=== PATIENT | male | born 1950 | race Caucasian/White ===

== ENCOUNTER 2017-03-10 19:44 | Emergency (ER) | payer OTHER ==
[~2017-03-10] VITALS: Ht 167.6 cm; Wt 102.1 kg
[~2017-03-10 19:44] MED LIST: ASPIRIN EC325 MG PO; BACITRACIN1 PKT TOP; CEPHALEXIN500 MG PO; COUMADIN2.5 MG PO; DULCOLAX STOOL100 MG PO; ECEE PLUS TABL1 EACH PO; FLEXERIL10 MG PO; GLYBURIDE MICR1.5 MG PO; GLYBURIDE2.5 MG PO; KEFLEX250 MG PO; LACTULOSE10 GM/152 PO; LANTUS100 UNITS/ SUB-Q; LASIX40 MG PO; LEVAQUIN750 MG PO; LISINOPRIL10 MG PO; METFORMIN HCL1000 MG PO; METFORMIN HCL850 MG PO; NORCO 5-325 TA1 EACH PO; NOVOLOG FL100 UNIT/1 SUB-Q; OMEPRAZOLE20 MG PO; OXECTA5 MG PO; SIMVASTATIN20 MG PO; SPIRONOLACTONE50 MG PO; ZOLPIDEM TARTRA10 MG PO
[2017-03-10] MEDS ORDERED: VISTARIL25 MG PO (20:02)
== END 2017-03-10 22:00 | disposition home or self-care (01) ==
LOC: ED 19:44
DX: T38.3X1A Poisoning by insulin and oral hypoglycemic [antidiabetic] drugs, accidental (unintentional), initial encounter (principal); E11.9 Type 2 diabetes mellitus without complications; K21.9 Gastro-esophageal reflux disease without esophagitis; E78.00 Pure hypercholesterolemia, unspecified; K74.60 Unspecified cirrhosis of liver; I10 Essential (primary) hypertension; Z85.46 Personal history of malignant neoplasm of prostate; Z86.19 Personal history of other infectious and parasitic diseases; Z87.891 Personal history of nicotine dependence; Z90.49 Acquired absence of other specified parts of digestive tract; Z88.8 Allergy status to other drugs, medicaments and biological substances; Z79.01 Long term (current) use of anticoagulants; Z79.899 Other long term (current) drug therapy; Z79.4 Long term (current) use of insulin
CPT/HCPCS: 80053; 82140; 85025; 85610; 99283; J7042

== ENCOUNTER 2017-03-17 19:08 | Emergency (ER) | payer OTHER ==
[~2017-03-17] VITALS: Ht 167.6 cm; Wt 102.1 kg
[~2017-03-17 19:08] MED LIST changes: +VISTARIL25 MG PO
[2017-03-17] MEDS ORDERED: ZITHROMAX250 MG PO (22:11)
[2017-04-17] MEDS ORDERED: TRAZODONE HCL100 MG PO (11:02)
[2017-04-17] MEDS ORDERED: FLOMAX0.4 MG PO (11:02)
[2017-04-17] MEDS ORDERED: ONGLYZA5 MG PO (11:03)
== END 2017-03-17 22:32 | disposition home or self-care (01) ==
LOC: ED 19:08
DX: J20.9 Acute bronchitis, unspecified (principal); E11.9 Type 2 diabetes mellitus without complications; K21.9 Gastro-esophageal reflux disease without esophagitis; E78.00 Pure hypercholesterolemia, unspecified; Z87.891 Personal history of nicotine dependence; Z90.49 Acquired absence of other specified parts of digestive tract; Z88.1 Allergy status to other antibiotic agents; Z79.4 Long term (current) use of insulin; Z79.01 Long term (current) use of anticoagulants; Z79.899 Other long term (current) drug therapy; Z86.19 Personal history of other infectious and parasitic diseases; Z85.46 Personal history of malignant neoplasm of prostate
CPT/HCPCS: 71046; 80053; 81001; 82140; 83605; 85025; 87040; 87502; 96360; 99284; J7030

== ENCOUNTER 2017-04-23 06:50 | Day surgery (SDC) | payer OTHER ==
[~2017-04-23] VITALS: Ht 167.6 cm; Wt 101.2 kg
[~2017-04-23 06:50] MED LIST changes: +FLOMAX0.4 MG PO; +ONGLYZA5 MG PO; +TRAZODONE HCL100 MG PO; +ZITHROMAX250 MG PO
--- NOTE | 2017-04-23 09:12 | NUR ---
[facility]17 [facility]12 [facility] AR[facility]IV[facility] IN PACU SLEEPY. REPORT FROM ANESTHESIA. BLOOD SUGAR 135. 0900 PT AWAKE WITH NO C/O'S.
--- NOTE | 2017-04-27 08:11 | OR ---
[facility] [address], [place] [address] Signed DATE OF OPERATION: 04/23/2017 SURGEON: Morgan Morton MD PREOPERATIVE DIAGNOSES: 1. Cirrhosis with intermittent encephalopathy. 2. Portal hypertension and portal gastropathy. 3. Grade 1 esophageal varices. 4. Hiatal hernia. 5. History of gastric ulcer. 6. Chews 6 cans of snuff each month. 7. History of hepatitis C virus. 8. Quit drinking alcohol in March 2016. POSTOPERATIVE DIAGNOSES: 1. Portal gastropathy. 2. Small to moderate-sized type 1 hiatal hernia. 3. Grade 1 esophageal varices. PROCEDURE: EGD without biopsy. ESTIMATED BLOOD LOSS: None. INDICATIONS: Nilesh is a 66-year-old gentleman, who unfortunately has a history of hepatitis C associated with alcohol, resulting in cirrhosis with intermittent encephalopathy. He also has portal hypertension with grade 1 esophageal varices and portal gastropathy. He is known to have a hiatal hernia and a previous gastric ulcer. He still chews snuff about 6 cans in a month. He had been out to [facility] to see the Hepatology Department. They recommended a followup endoscopy to evaluate the varices. I explained to Nilesh, he also has splenomegaly with thrombocytopenia, but with thrombocytopenia with a platelet count around 48,000. Consequently, he does represent significant risk directly for surgeries. Also, we do not have a mail officer at our institution and I explained we would not be banding any varices. It was simply be diagnostic. In addition, he has a history of paroxysmal atrial fibrillation with AV block and had a pacemaker placed in 2014. Consequently, he has been on Coumadin. I explained to Nilesh, we would not be doing any biopsies, they would not add anything what we already know. I reviewed with him upper endoscopy along with its risks and benefits Electronically Signed By: MORGAN MORTON MD 04/27/17 0811 PATIENT NAME: NILESH CASSIDY OPERATIVE REPORT DATE OF : 50 PHYSICIAN: MORGAN MROTON MD REPORT #: [id number] REPORT IS CONFIDENTIAL AND NOT TO BE RELEASED WITHOUT AUTHORIZATION [facility] [address], [place] [address] Signed including, but not limited to, gas bloating, crampy abdominal pain, bleeding, perforation, requiring surgery, and missed diagnosis. He also understands the need for IV conscious sedation given his significant past medical history. We asked an anesthesia provider to help us with increased monitoring sedation with propofol. He had expressed understanding and wished to proceed. PROCEDURE NOTE: Nilesh was taken into our endoscopy suite and placed in the supine semi-recumbent position. The posterior oropharynx was anesthetized with Hurricaine spray. A bite block was utilized for the case. He was given IV sedation with propofol per nurse parachute mender. The adult gastroscope was introduced and advanced easily down the esophagus and out into the third portion of the duodenum. The duodenum was unremarkable. The pyloric channel had just a little bit of irritation. The stomach shows classic portal gastropathy with punctate areas of hemorrhage throughout. No ulcerations. Upon retroflexion of the scope, it was difficult to see, but he does have a small to moderate-sized type 1 hiatal hernia. We withdrew the scope up through the area of the GE junction, which was compliant without stricture and once again, we could see the hiatal hernia. We could easily see his grade 1 esophageal varices in his distal esophagus. The middle and upper esophagus were unremarkable. After this, the gas was suctioned out and the gastroscope removed. Nilesh tolerated the procedure quite well. RECOMMENDATIONS: I will give Nilesh a copy of his pictures. He is welcome to follow up in my office as needed. 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 If he needs to have banding performed, he would have to go to another institution since we do not have a mail officer. MD MARIANELA Hooks/MODL /[id number] cc: [place], [place] Morgan Morton MD Electronically Signed By: MORGAN MORTON MD 04/27/17810 PATIENT NAME: NILESH CASSIDY OPERATIVE REPORT DATE OF : 50 PHYSICIAN: MORGAN MORTON MD REPORT #: [id number] REPORT IS CONFIDENTIAL AND NOT TO BE RELEASED WITHOUT AUTHORIZATION [facility] [address] [place] [id number] Signed MD Delano Alas MD Electronically Signed By: MORGAN MORTON MD 04/27/17810 PATIENT NAME: NILESH CASSIDY OPERATIVE REPORT DATE OF : 50 PHYSICIAN: MORGAN MORTON MD REPORT #: [id number] REPORT IS CONFIDENTIAL AND NOT TO BE RELEASED WITHOUT AUTHORIZATION
== END 2017-04-23 09:30 | disposition home or self-care (01) ==
LOC: DS 06:50 → OPS 06:50 → DS 08:00
PROVIDERS: Colon & Rectal Surgery
PROC: 0DJ08ZZ Inspection of Upper Intestinal Tract, Via Natural or Artificial Opening Endoscopic (ICD-10-PCS; principal; 2017-04-23 08:00)
DX: K76.6 Portal hypertension (principal); K31.89 Other diseases of stomach and duodenum; K44.9 Diaphragmatic hernia without obstruction or gangrene; I85.10 Secondary esophageal varices without bleeding; G47.30 Sleep apnea, unspecified; I48.0 Paroxysmal atrial fibrillation; E11.42 Type 2 diabetes mellitus with diabetic polyneuropathy; I10 Essential (primary) hypertension; K21.9 Gastro-esophageal reflux disease without esophagitis; I73.9 Peripheral vascular disease, unspecified; N40.0 Benign prostatic hyperplasia without lower urinary tract symptoms; E78.5 Hyperlipidemia, unspecified; M19.90 Unspecified osteoarthritis, unspecified site; Z98.890 Other specified postprocedural states; Z90.49 Acquired absence of other specified parts of digestive tract; Z79.01 Long term (current) use of anticoagulants; Z79.899 Other long term (current) drug therapy; Z96.652 Presence of left artificial knee joint; Z95.0 Presence of cardiac pacemaker; Z87.891 Personal history of nicotine dependence; Z88.8 Allergy status to other drugs, medicaments and biological substances
CPT/HCPCS: J2250; J2704; J3010; J7120

== ENCOUNTER 2019-04-12 03:17 | Emergency (ER) | payer OTHER ==
[~2019-04-12] VITALS: Ht 167.6 cm; Wt 101.2 kg
[~2019-04-12 03:17] MED LIST changes: +ASPIR 8181 MG PO; +CIPRO500 MG PO; +EPCLUSA 400 MG1 EACH PO; +FERROUS FUMARA324 MG PO; +FLAGYL500 MG PO; +GLUCOPHAGE850 MG PO; +GLYBURIDE5 MG PO; +LISINOPRIL30 MG PO; +NITROGLYCERIN0.4 MG SL
[2019-04-12] MEDS ORDERED: GABAPENTIN300 MG PO (03:55)
[2019-04-12] MEDS ORDERED: ALOGLIPTIN25 MG PO (03:55)
[2019-04-12] MEDS ORDERED: GLUCOPHAGE500 MG PO (03:56)
[2019-04-12] MEDS ORDERED: ELIQUIS5 MG PO (03:56)
--- NOTE | 2019-04-13 10:56 | EKG ---
[facility] [address] [place] [address] Signed Atrial-sensed ventricular-paced rhythm with prolonged AV conduction Abnormal ECG When compared with ECG of 04-MAR-2018 18:00, Vent. rate has decreased BY 6 BPM Confirmed by RDONEY SHELTON MD ([id number]) on 04/13/2019 10:56:38 AM Electronically Signed By: RODNEY SHELTON MD 04/13/19 1056 PATIENT NAME: TIN CASSIDY Electrocardiogram DATE OF : 50 PHYSICIAN: RODNEY SHELTON MD REPORT #: [id number] REPORT IS CONFIDENTIAL AND NOT TO BE RELEASED WITHOUT AUTHORIZATION
== END 2019-04-12 07:00 | disposition home or self-care (01) ==
LOC: ED 03:17
DX: F10.129 Alcohol abuse with intoxication, unspecified (principal); E11.9 Type 2 diabetes mellitus without complications; K21.9 Gastro-esophageal reflux disease without esophagitis; I10 Essential (primary) hypertension; Z88.1 Allergy status to other antibiotic agents; Z79.899 Other long term (current) drug therapy; Z79.84 Long term (current) use of oral hypoglycemic drugs
CPT/HCPCS: 51701; 71045; 80053; 81001; 82140; 84484; 85025; 85610; 93005; 93010; 99284-25; G0480; J7030

== ENCOUNTER 2021-10-25 16:37 | Emergency (ER) | payer OTHER ==
[~2021-10-25] VITALS: Ht 167.6 cm; Wt 97.1 kg
[~2021-10-25 16:37] MED LIST changes: +ALOGLIPTIN25 MG PO; +ELIQUIS5 MG PO; +GABAPENTIN300 MG PO; +GLUCOPHAGE500 MG PO
== END 2021-10-25 22:31 | disposition home or self-care (01) ==
LOC: ED 16:37
DX: R31.9 Hematuria, unspecified (principal); D69.6 Thrombocytopenia, unspecified; E11.9 Type 2 diabetes mellitus without complications; K21.9 Gastro-esophageal reflux disease without esophagitis; E78.00 Pure hypercholesterolemia, unspecified; I10 Essential (primary) hypertension; I48.91 Unspecified atrial fibrillation; Z88.1 Allergy status to other antibiotic agents; Z79.899 Other long term (current) drug therapy; Z79.4 Long term (current) use of insulin; Z79.84 Long term (current) use of oral hypoglycemic drugs
CPT/HCPCS: 36415; 74177; 80053; 81001; 85025; 85060; 85610; 85730; 99284-25; Q9967

== ENCOUNTER 2022-07-24 13:39 | Emergency (ER) | payer OTHER ==
[~2022-07-24] VITALS: Ht 167.6 cm; Wt 97.1 kg
[2022-07-24] MEDS ORDERED: JARDIANCE10 MG PO (13:54)
[2022-07-24] MEDS ORDERED: ROSUVASTATIN CA20 MG PO (13:54)
[2022-07-24] MEDS ORDERED: LANTUS SOL100 UNIT/1 SUB-Q (15:13)
[2022-07-24 15:52] VITALS: BP 115/77
--- NOTE | 2022-07-24 19:10 | EKG ---
[facility] [address] [address] Signed Ventricular-paced rhythm Abnormal ECG When compared with ECG of 12-APR-2019 03:36, Vent. rate has decreased BY 11 BPM Confirmed by EMILY FOSTER MD ([id number]) on 07/24/2022 7:10:24 PM Electronically Signed By: EMILY FOSTER MD 07/24/221909 PATIENT NAME: TIN CASSIDY Electrocardiogram DATE OF : 50 PHYSICIAN: EMILY FOSTER MD REPORT #: [id number] REPORT IS CONFIDENTIAL AND NOT TO BE RELEASED WITHOUT AUTHORIZATION
== END 2022-07-24 15:53 | disposition home or self-care (01) ==
LOC: ED 13:39
DX: E11.65 Type 2 diabetes mellitus with hyperglycemia (principal); K21.9 Gastro-esophageal reflux disease without esophagitis; E78.00 Pure hypercholesterolemia, unspecified; I10 Essential (primary) hypertension; I48.91 Unspecified atrial fibrillation; Z88.1 Allergy status to other antibiotic agents; Z79.899 Other long term (current) drug therapy; Z79.4 Long term (current) use of insulin; Z79.84 Long term (current) use of oral hypoglycemic drugs
CPT/HCPCS: 36415; 70450; 71045; 80053; 81003; 82140; 83735; 85025; 85060; 93005; 93010; 99284-25

== ENCOUNTER 2023-04-04 10:52 | Emergency (ER) | payer OTHER ==
[~2023-04-04] VITALS: Ht 170.2 cm; Wt 104.8 kg
[~2023-04-04 10:52] MED LIST changes: +JARDIANCE10 MG PO; +LANTUS SOL100 UNIT/1 SUB-Q; +ROSUVASTATIN CA20 MG PO
[2023-04-04 11:45] LABS: ALBUMIN 2.5 g/dL (3.4-5.0); ALBUMIN/GLOBULIN RATIO 0.58 (1.1-2.4); ALCOHOL, MEDICAL <3 ng/dL (<3); ALKALINE PHOSPHATASE 119 U/L (46-116); ALT (SGPT) 34 U/L (14-59); ANION GAP 17.4 (7-21); AST (SGOT) 51 U/L (15-37); BILIRUBIN, TOTAL 3.2 ng/dL (0.2-1.0); BUN/CREATININE RATIO 13.81 (6.0-28.6); CALCIUM 8.8 mg/dL (8.5-10.1); CARBON DIOXIDE 23 mmol/L (21-32); CHLORIDE 97 mmol/L (98-107); CREATININE, SERUM 1.52 mg/dL (0.70-1.30); GLOMERULAR FILTRATION RATE,EST 48 mL/min (>60); POTASSIUM 5.4 mmol/L (3.5-5.1); PROTEIN, TOTAL 6.8 g/dL (6.4-8.2); UREA NITROGEN 21 mg/dL (7-18)
[2023-04-04 12:20] LABS: BASOPHILS 0.1 % (0-2); EOSINOPHILS 0.2 % (0-6); HEMATOCRIT 31.6 % (35.0-50.0); HEMOGLOBIN 12.3 g/dL (12.0-18.0); LYMPHOCYTES 1.9 % (24-44); MCH 45.7 (27-36); MONOCYTES 1.2 % (0-12); NEUTROPHILS 96.6 % (39-80); RDW 14.7 (10.5-15.0)
[2023-04-04 12:39] LABS: BILIRUBIN, URINE POSITIVE (negative); BLOOD/HGB, URINE LARGE (Negative); KETONE, URINE NEGATIVE (Negative); LEUK ESTERASE, URINE SMALL (negative); NITRITE, URINE NEGATIVE (negative)
[2023-04-04 12:41] LABS: BACTERIA, URINE RARE /hpf (negative); CASTS, URINE NONE SEEN \\lpf; COLLECTION TYPE, URINE CLEAN CATCH; CRYSTALS, URINE NONE SEEN (0-1+); EPITHELIAL CELLS, URINE 0 /lpf (0-1+); RED BLOOD CELLS, URINE >50 /hpf (0-5); REFLEX CULTURE, URINE Yes (No)
[2023-04-04 12:55] LABS: AMPHETAMINES, URINE NEGATIVE (NEGATIVE); BARBITURATES, URINE NEGATIVE (NEGATIVE); BENZODIAZEPINE, URINE NEGATIVE (NEGATIVE); BUPRENORPHINE, URINE NEGATIVE (NEGATIVE); CANNABINOID, URINE NEGATIVE (NEGATIVE); COCAINE, URINE NEGATIVE (NEGATIVE); ECSTASY, URINE POSITIVE (NEGATIVE); FENTANYL, URINE POSITIVE (NEGATIVE); METHADONE, URINE NEGATIVE (NEGATIVE); OPIATES, URINE NEGATIVE (NEGATIVE); OXYCODONE, URINE NEGATIVE (NEGATIVE); PHENCYCLIDINE, URINE NEGATIVE (NEGATIVE)
[2023-04-04 13:01] LABS: MCHC 35.9 g/dl (30-36); PLATELET COUNT 50 K/uL (140-440)
[2023-04-04 14:32] VITALS: BP 122/63
[2023-04-06 00:49] LABS: FOLATE,SERUM 9.3 ng/mL (>=5.9)
== END 2023-04-04 14:32 | disposition home or self-care (01) ==
LOC: ED 10:52
PROVIDERS: Emergency Medicine
DX: R53.1 Weakness (principal); E11.9 Type 2 diabetes mellitus without complications; I10 Essential (primary) hypertension; K21.9 Gastro-esophageal reflux disease without esophagitis; I48.91 Unspecified atrial fibrillation; Z95.0 Presence of cardiac pacemaker; Z79.4 Long term (current) use of insulin; Z79.899 Other long term (current) drug therapy; Z88.8 Allergy status to other drugs, medicaments and biological substances; Z79.84 Long term (current) use of oral hypoglycemic drugs; Z79.01 Long term (current) use of anticoagulants; Z91.81 History of falling
CPT/HCPCS: 36415; 70450; 73030; 80053; 80307; 81001; 82607; 82746; 85025; 85060; 87088; 99285-25; G0480

== ENCOUNTER 2023-05-20 06:41 | Emergency (ER) | payer OTHER ==
[~2023-05-20 06:41] MED LIST changes: -TRAZODONE HCL100 MG PO; +TRAZODONE HCL150 MG PO
[2023-05-20 07:11] LABS: ALKALINE PHOSPHATASE 170 U/L (46-116); ALT (SGPT) 42 U/L (14-59); ANION GAP 16.8 (7-21); AST (SGOT) 41 U/L (15-37); BILIRUBIN, TOTAL 2.5 ng/dL (0.2-1.0); CALCIUM 8.9 mg/dL (8.5-10.1); CARBON DIOXIDE 24 mmol/L (21-32); CHLORIDE 95 mmol/L (98-107); CREATININE, SERUM 2.34 mg/dL (0.70-1.30); GLOMERULAR FILTRATION RATE,EST 29 mL/min (>60); POTASSIUM 4.8 mmol/L (3.5-5.1); PROTEIN, TOTAL 6.5 g/dL (6.4-8.2); UREA NITROGEN 44 mg/dL (7-18)
[2023-05-20 07:26] LABS: ALCOHOL, MEDICAL <3 ng/dL (<3)
[2023-05-20 07:40] LABS: ABO B; ANTIBODY SCREEN NEGATIVE; RH POSITIVE
[2023-05-20 07:44] LABS: BASOPHILS 0.2 % (0-2); EOSINOPHILS 2.1 % (0-6); HEMATOCRIT 29.3 % (35.0-50.0); LYMPHOCYTES 6.2 % (24-44); MCH 46.9 (27-36); MCHC 39.6 g/dl (30-36); MCV 118.3 fl (81-99); MONOCYTES 14.4 % (0-12); NEUTROPHILS 77.1 % (39-80); PLATELET COUNT 91 K/uL (140-440); RBC 2.48 M/ul (4.3-5.7); RDW 15.6 (10.5-15.0)
[2023-05-20 07:46] LABS: HEMOGLOBIN 11.6 g/dL (12.0-18.0)
[2023-05-20] MEDS ORDERED: ondansetron HCL 4 MG/2 ML VIAL IV ONE (08:00)
[2023-05-20] MEDS ORDERED: SODIUM CHLORIDE 0.9% 500 ML IV PRN (08:00)
[2023-05-20] MEDS ORDERED: SPIRONOLACTONE100 MG PO (08:01)
[2023-05-20] MEDS ORDERED: TORSEMIDE20 MG PO (08:01)
[2023-05-20] MEDS ORDERED: LANTUS SOL100 UNIT/1 SUB-Q (08:06)
[2023-05-20] MEDS ORDERED: OZEMPIC0.25 MG/02 SUB-Q (08:07)
[2023-05-20] MEDS ORDERED: METFORMIN HCL500 MG PO (08:10)
[2023-05-20 09:31] LABS: BILIRUBIN, URINE NEGATIVE (negative); BLOOD/HGB, URINE LARGE (Negative); KETONE, URINE NEGATIVE (Negative); LEUK ESTERASE, URINE MODERATE (negative); NITRITE, URINE NEGATIVE (negative)
[2023-05-20 09:40] LABS: RED BLOOD CELLS, URINE >50 /hpf (0-5); WHITE BLOOD CELLS, URINE >50 /HPF (0-5)
[2023-05-20 09:41] LABS: COLLECTION TYPE, URINE CLEAN CATCH; REFLEX CULTURE, URINE Yes (No)
[2023-05-20 09:42] LABS: EPITHELIAL CELLS, URINE 0 /lpf (0-1+)
[2023-05-20 09:48] LABS: AMPHETAMINES, URINE NEGATIVE (NEGATIVE); BARBITURATES, URINE NEGATIVE (NEGATIVE); BENZODIAZEPINE, URINE NEGATIVE (NEGATIVE); BUPRENORPHINE, URINE NEGATIVE (NEGATIVE); CANNABINOID, URINE NEGATIVE (NEGATIVE); COCAINE, URINE NEGATIVE (NEGATIVE); ECSTASY, URINE NEGATIVE (NEGATIVE); FENTANYL, URINE NEGATIVE (NEGATIVE); METHADONE, URINE NEGATIVE (NEGATIVE); OPIATES, URINE NEGATIVE (NEGATIVE); OXYCODONE, URINE NEGATIVE (NEGATIVE); PHENCYCLIDINE, URINE NEGATIVE (NEGATIVE)
[2023-05-20 10:23] LABS: INFLUENZA B NAA NEGATIVE (NEGATIVE); RESPIRATORY SYNCYTIAL VIR NAA NEGATIVE (NEGATIVE)
--- NOTE | 2023-05-20 11:56 | EKG ---
[facility] [place] [facility] [address] [facility] [place] [address] Signed Ventricular-paced rhythm Abnormal ECG When compared with ECG of 24-JUL-2022 13:50, Vent. rate has increased BY 2 BPM Confirmed by CRISSY SALOMON MD ([id number]) on 05/20/2023 11:56:16 AM Electronically Signed By: CRISSY SALOMON 05/20/23 1156 PATIENT NAME: ANGETIN Electrocardiogram DATE OF : 50 PHYSICIAN: CRISSY SALOMON REPORT #: [id number] REPORT IS CONFIDENTIAL AND NOT TO BE RELEASED WITHOUT AUTHORIZATION
[2023-05-20] MEDS ORDERED: ONDANSETRON ODT8 MG PO (12:47)
[2023-05-20] MEDS ORDERED: DIFLUCAN100 MG PO (12:47)
[2023-05-20] MEDS ORDERED: ITCH RELIEF15 GM TOP (12:47)
[2023-05-20 13:02] VITALS: BP 133/64
[2023-05-27] MEDS ORDERED: FLUCONAZOLE100 MG PO (14:11)
[2023-05-27] MEDS ORDERED: VITAMIN D325 MCG PO (17:14)
[2023-05-27] MEDS ORDERED: NEURONTIN300 MG PO (17:15)
[2023-05-27] MEDS ORDERED: VITAMIN B COMP1 EACH PO (17:18)
[2023-05-27] MEDS ORDERED: OMEPRAZOLE20 MG PO (17:18)
[2023-05-27] MEDS ORDERED: OXYBUTYNIN CHLO10 MG PO (17:20)
[2023-05-27] MEDS ORDERED: ALDACTONE100 MG PO (17:22)
[2023-05-27] MEDS ORDERED: VITAMIN B-1100 M1 PO (17:23)
[2023-06-03] MEDS ORDERED: ALDACTONE100 MG PO (09:11)
== END 2023-05-20 13:06 | disposition home or self-care (01) ==
LOC: ED 06:41
PROVIDERS: Family Medicine
DX: E86.0 Dehydration (principal); R18.8 Other ascites; N17.9 Acute kidney failure, unspecified; E11.9 Type 2 diabetes mellitus without complications; K21.9 Gastro-esophageal reflux disease without esophagitis; E78.00 Pure hypercholesterolemia, unspecified; I10 Essential (primary) hypertension; I48.91 Unspecified atrial fibrillation; W19.XXXA Unspecified fall, initial encounter; Z88.8 Allergy status to other drugs, medicaments and biological substances; Z79.899 Other long term (current) drug therapy; Z79.01 Long term (current) use of anticoagulants; Z79.4 Long term (current) use of insulin; Z79.85 Long-term (current) use of injectable non-insulin antidiabetic drugs; Z79.84 Long term (current) use of oral hypoglycemic drugs
CPT/HCPCS: 36415; 70450; 71045; 72125; 80053; 80307; 81001; 85025; 85060; 86850; 86900; 86901; 87088; 87502; 93005; 93010; 96374; 99285-25; G0480; J2405; J7040; U0002